=== PATIENT | female | born 1940 | race Hispanic/Latino ===

== ENCOUNTER 2017-03-01 04:27 | Emergency (ER) | payer MEDICARE, BC ==
[2017-03-01 04:27] VITALS: BMI 24.7
[2017-03-01 04:31] VITALS: RESP 18; TEMP 98.2
--- NOTE | 2017-03-01 04:46 | ED PDOC ---
Arrival/HPI - General Time Seen by Provider: 03/01/17 04:28 Historian: Patient - History of Present Illness Narrative History of Present Illness (Text): 03/01/17 04:37 Britany Delarosa is a 76 year old female, whose past medical history includes hypertension, who presents to the Emergency department complaining of generalized weakness. Patient states she has been feeling unwell and weak for the past week with associated cough, subjective fever, and chills. Patient states she was seen by her PMD for similar complaints, diagnosed with pneumonia , and placed on antibiotics. Patient had a Chest X-ray performed on 02/24/2017, which showed interstitial infiltrate in right lower lobe. Patient states she has been taking medication as prescribed but denies any significant relief. Patient also reports some abdominal discomfort. Patient denies any shortness of breath, nausea, vomiting, diarrhea, appetite changes urinary symptoms, back pain , neck pain, headache, dizziness, or any other complaints. PMD: Dr. Marie Time/Duration: 1 week Symptom Onset: Gradual Symptom Course: Unchanged Activities at Onset: Rest, Light Context: Home Past Medical History - Provider Review Nursing Documentation Reviewed: Yes - Cardiac Hx Cardiac Disorders: Yes Hx Hypertension: Yes - Pulmonary Hx Respiratory Disorders: No - Neurological Hx Neurological Disorder: No - HEENT Hx HEENT Disorder: No - Renal Hx Renal Disorder: No - Endocrine/Metabolic Hx Endocrine Disorders: No - Hematological/Oncological Hx Blood Disorders: No - Integumentary Hx Dermatological Disorder: No - Musculoskeletal/Rheumatological Hx Musculoskeletal Disorders: Yes Hx Arthritis: Yes - Gastrointestinal Hx Gastrointestinal Disorders: No - Genitourinary/Gynecological Hx Genitourinary Disorders: No - Psychiatric Hx Psychophysiologic Disorder: Yes Hx Anxiety: Yes Hx Depression: Yes Hx Substance Use: No - Surgical History Hx Hysterectomy: Yes Family/Social History - Physician Review Nursing Documentation Reviewed: Yes Family/Social History: Unknown Family HX Smoking Status: Never Smoked Hx Alcohol Use: No Hx Substance Use: No Allergies/Home Meds Allergies/Adverse Reactions: Allergies No Known Allergies Allergy (Verified 03/01/17 04:47) Home Medications: Home Meds Medication Instructions Recorded Confirmed Alprazolam [Xanax] 0.25 mg PO DAILY 01/08/15 03/01/17 Aspirin [Ecotrin] 81 mg PO DAILY 01/08/15 03/01/17 Bisoprolol Fumarate/Hctz 1 tab PO DAILY 01/08/15 03/01/17 [Bisoprolol/Hctz 5 mg-6.25 mg] Meloxicam [Meloxicam] 7.5 mg PO DAILY 01/08/15 03/01/17 Memantine [Namenda] 5 mg PO DAILY 01/08/15 03/01/17 Sertraline Hydrochloride 50 mg PO DAILY 01/08/15 03/01/17 [Sertraline] Tiotropium [Spiriva] 18 mcg INH DAILY 01/08/15 03/01/17 Review of Systems - Physician Review All systems were reviewed & negative as marked: Yes - Review of Systems Constitutional: Fevers, Other (+chills, +generalized weakness) Eyes: Normal ENT: Normal Respiratory: Cough. absent: SOB Cardiovascular: Normal. absent: Chest Pain Gastrointestinal: absent: Diarrhea, Vomiting Genitourinary Female: Normal. absent: Dysuria, Frequency, Hematuria, Urine Output Changes Musculoskeletal: Normal. absent: Back Pain, Neck Pain Skin: Normal. absent: Rash Neurological: Normal. absent: Headache, Dizziness Endocrine: Normal Hemo/Lymphatic: Normal Psychiatric: Normal Physical Exam Vital Signs Reviewed: Yes Vital Signs Temp Pulse Resp BP Pulse Ox 03/01/17 04:30 98.2 F 78 18 157/68 H 95 Temperature: Afebrile Blood Pressure: Hypertensive Pulse: Regular Respiratory Rate: Normal Appearance: Positive for: Well-Appearing, Non-Toxic, Comfortable Pain Distress: None Mental Status: Positive for: Alert and Oriented X 3 - Systems Exam Head: Present: Atraumatic, Normocephalic Pupils: Present: PERRL Extroacular Muscles: Present: EOMI Conjunctiva: Present: Normal Mouth: Present: Moist Mucous Membranes Neck: Present: Normal Range of Motion Respiratory/Chest: Present: Clear to Auscultation, Good Air Exchange. No: Respiratory Distress, Accessory Muscle Use Cardiovascular: Present: Regular Rate and Rhythm, Normal S1, S2. No: Murmurs Abdomen: Present: Normal Bowel Sounds. No: Tenderness, Distention, Peritoneal Signs Back: Present: Normal Inspection Upper Extremity: Present: Normal Inspection. No: Cyanosis, Edema Lower Extremity: Present: Normal Inspection. No: Edema Neurological: Present: GCS=15, CN II-XII Intact, Speech Normal Skin: Present: Warm, Dry, Normal Color. No: Rashes Psychiatric: Present: Alert, Oriented x 3, Normal Insight, Normal Concentration Medical Decision Making ED Course and Treatment: 03/01/17 04:37 Impression: 76 year old female complaining of generalized weakness, subjective fever, chills , and cough Differential Diagnosis included but are not limited to: Plan: -- EKG -- Chest X-ray -- Labs, troponin -- Reassess and disposition Prior Visits: Notes and results from previous visits were reviewed. On 02/24/2017, pt had Chest X-ray performed, showed interstitial infiltrate in right lower lobe. Progress Notes: 03/01/17 05:07 reviewed EKG, NSR at [address]pm[address] Non-specific ST/T wave changes. Re-evaluation Time: 06:20 Reassessment Condition: Re-examined, Improved - Lab Interpretations Lab Results: 03/01/17 05:10 03/01/17 05:10 Lab Results 03/01/17 05:10: Sodium 139, Potassium 3.6, Chloride 99, Carbon Dioxide 30, Anion Gap 14, BUN 17, Creatinine 0.9, Est GFR ( Amer) > 60, Est GFR (Non- Af Amer) > 60, Random Glucose 99, Calcium 9.3, Total Bilirubin 0.6, AST 28, ALT 33, Alkaline Phosphatase 102, Troponin I < 0.01, Total Protein 7.5, Albumin 3.9 , Globulin 3.6, Albumin/Globulin Ratio 1.1 03/01/17 05:10: WBC 6.6 D, RBC 3.83, Hgb 11.7 L, Hct 35.5 L, MCV 92.7, MCH 30.5 , MCHC 33.0, RDW 12.6, Plt Count 214, MPV 10.1, Gran % 72.7 H, Lymph % (Auto) 16.9 L, [place] % (Auto) 8.4 H, Eos % (Auto) 1.8, Baso % (Auto) 0.2, Gran # 4.77, Lymph # 1.1 L, [place] # 0.6, Eos # 0.1, Baso # 0.01 - RAD Interpretation Radiology Orders: 03/01/17 04:55 CHEST TWO VIEWS (PA/LAT) [RAD] Stat - EKG Interpretation Interpreted by ED Physician: Yes Type: 12 lead EKG - Scribe Statement The provider has reviewed the documentation as recorded by the Gisela Mays Provider Scribe Attestation: All medical record entries made by the Jermanibkristina were at my direction and personally dictated by me. I have reviewed the chart and agree that the record accurately reflects my personal performance of the history, physical exam, medical decision making, and the department course for this patient. I have also personally directed, reviewed, and agree with the discharge instructions and disposition. Disposition/Present on Arrival - Present on Arrival Any Indicators Present on Arrival: No History of DVT/PE: No History of Uncontrolled Diabetes: No Urinary Catheter: No History Surgical Site Infection Following: None - Disposition Have Diagnosis and Disposition been Completed?: Yes Diagnosis: Pneumonia Disposition: HOME/ ROUTINE Disposition Time: 06:21 Condition: GOOD Discharge Instructions (ExitCare): Pneumonia (ED)
[2017-03-01 05:57] LABS: BASO # 0.01 K/mm3 (0.0-2.0); BASO % 0.2 % (0.0-3.0); EOS # 0.1 (0.0-0.7); EOS % 1.8 % (1.5-5.0); GRAN # 4.77 (1.4-6.5); GRAN % 72.7 % (50.0-68.0); HEMATOCRIT 35.5 % (36.0-48.0); LYMPH # 1.1 (1.2-3.4); LYMPH % 16.9 % (22.0-35.0); MEAN CELL VOLUME 92.7 fl (80.0-105.0); MEAN CORPUSCULAR HEMOGLOBIN 30.5 pg (25.0-35.0); MEAN PLATELET VOLUME 10.1 fl (7.0-11.0); MONO # 0.6 (0.1-0.6); MONO % 8.4 % (1.0-6.0); RED CELL DISTRIBUTION WIDTH 12.6 % (11.5-14.5); WHITE BLOOD COUNT 6.6 10^3/ul (4.5-11.0)
[2017-03-01 06:01] LABS: ALB/GLOB RATIO 1.1 (1.1-1.8); ALKALINE PHOSPHATASE 102 U/L (38-133); ALT/SGPT 33 U/L (7-56); AST/SGOT 28 U/L (15-39); BILIRUBIN,TOTAL 0.6 mg/dL (0.2-1.3); BLOOD UREA NITROGEN 17 mg/dL (7-21); CALCIUM 9.3 mg/dL (8.4-10.5); CARBON DIOXIDE 30 mmol/L (21-33); CHLORIDE 99 mmol/L (98-107); GFR AFRICAN-AMERICAN > 60; GLUCOSE,RANDOM 99 mg/dL (70-110); POTASSIUM 3.6 mmol/L (3.6-5.0); SODIUM 139 mmol/L (132-148); TOTAL PROTEIN 7.5 g/dL (5.8-8.3)
[2017-03-01 06:16] LABS: TROPONIN I < 0.01 ng/mL
[2017-03-01 06:49] VITALS: BP 150/70; PULSE 80; O2SAT 98
--- NOTE | 2017-03-01 10:52 | CARD ---
APPROVED REPORT EKG Measurement Heart [id number] <Conclusion> Normal sinus rhythm Septal infarct, age undetermined Abnormal ECG
--- NOTE | 2017-03-01 11:31 | RAD ---
HISTORY: fall COMPARISON: 02/24/2017 TECHNIQUE: Chest PA and lateral FINDINGS: LUNGS: No acute infiltrate. Heterogeneous opacity at right base may reflect coarse interstitial changes or junior pulmonary nodules as demonstrated on chest CT examination of 12/10/2016. PLEURA: No significant pleural effusion identified. No pneumothorax apparent. CARDIOVASCULAR: Normal. OSSEOUS STRUCTURES: No significant abnormalities. VISUALIZED UPPER ABDOMEN: Normal. OTHER FINDINGS: None. IMPRESSION: No acute abnormality. Heterogeneous opacity at right base unchanged from prior examination. No acute infiltrate. No evidence of rib fracture.
== END 2017-03-01 06:31 | disposition home or self-care (01) ==
LOC: ED 04:27
DX: J18.9 Pneumonia, unspecified organism (principal); I10 Essential (primary) hypertension

== ENCOUNTER 2017-08-21 00:16 | Observation (INO) | payer MEDICARE, BC ==
[2017-08-21 00:16] VITALS: BMI 24.7
[2017-08-21 01:14] VITALS: TEMP 97.6
[2017-08-21] MEDS ORDERED: Levalbuterol 1.25 MG/3 ML Inhal Soln UD IH STA ×2 (01:18→02:55)
--- NOTE | 2017-08-21 01:33 | ED PDOC ---
Arrival/HPI - General Chief Complaint: Cough, Cold, Congestion Time Seen by Provider: 08/21/17 01:07 Historian: Patient, Family (Son) - History of Present Illness Narrative History of Present Illness (Text): 08/21/17 01:28 A 77 year old female, whose past medical history includes includes hypertension , presents to the emergency department complaining of 3 day duration cough and shortness of breath. She states that she was seen by her PMD 2 weeks ago for her symptoms and was given a Z-pack with no relief of her symptoms. She also notes that her sleeping medication was changed, and she has been having difficulty sleeping. The patient denies fevers, headache, dizziness, abdominal pain, nausea, vomiting, diarrhea, back pain, neck pain, urinary/bowel changes, or any other complaint. PMD: Dr. Marie Time/Duration: Other (3 days ) Symptom Onset: Sudden Symptom Course: Unchanged Activities at Onset: Rest, Light Context: Home Past Medical History - Provider Review Nursing Documentation Reviewed: Yes - Reproductive Menopause: Yes - Cardiac Hx Cardiac Disorders: Yes Hx Hypertension: Yes - Pulmonary Hx Respiratory Disorders: No - Neurological Hx Neurological Disorder: No - HEENT Hx HEENT Disorder: No - Renal Hx Renal Disorder: No - Endocrine/Metabolic Hx Endocrine Disorders: No - Hematological/Oncological Hx Blood Disorders: No - Integumentary Hx Dermatological Disorder: No - Musculoskeletal/Rheumatological Hx Musculoskeletal Disorders: Yes Hx Arthritis: Yes - Gastrointestinal Hx Gastrointestinal Disorders: No - Genitourinary/Gynecological Hx Genitourinary Disorders: No - Psychiatric Hx Psychophysiologic Disorder: Yes Hx Anxiety: Yes Hx Depression: Yes Hx Substance Use: No - Surgical History Hx Hysterectomy: Yes - Anesthesia Hx Anesthesia: Yes Family/Social History - Physician Review Nursing Documentation Reviewed: Yes Family/Social History: No Known Family HX Smoking Status: Never Smoked Hx Alcohol Use: No Hx Substance Use: No Allergies/Home Meds Allergies/Adverse Reactions: Allergies No Known Allergies Allergy (Verified 08/21/17 01:20) Home Medications: Home Meds Medication Instructions Recorded Confirmed Alprazolam [Xanax] 0.25 mg PO DAILY 01/08/15 03/01/17 Aspirin [Ecotrin] 81 mg PO DAILY 01/08/15 03/01/17 Bisoprolol Fumarate/Hctz 1 tab PO DAILY 01/08/15 03/01/17 [Bisoprolol/Hctz 5 mg-6.25 mg] Meloxicam [Meloxicam] 7.5 mg PO DAILY 01/08/15 03/01/17 Memantine [Namenda] 5 mg PO DAILY 01/08/15 03/01/17 Sertraline Hydrochloride 50 mg PO DAILY 01/08/15 03/01/17 [Sertraline] Tiotropium [Spiriva] 18 mcg INH DAILY 01/08/15 03/01/17 Review of Systems - Physician Review All systems were reviewed & negative as marked: Yes - Review of Systems Constitutional: absent: Fevers Respiratory: SOB, Cough Gastrointestinal: absent: Abdominal Pain, Stool Changes, Diarrhea, Nausea, Vomiting Musculoskeletal: absent: Back Pain, Neck Pain Neurological: absent: Headache, Dizziness Physical Exam Vital Signs Reviewed: Yes Vital Signs Temp Pulse Resp BP Pulse Ox 08/21/17 03:00 75 18 172/89 H 98 08/21/17 01:40 20 98 08/21/17 01:13 97.6 F 73 18 155/93 H 97 Temperature: Afebrile Blood Pressure: Hypertensive Pulse: Regular Respiratory Rate: Normal Appearance: Positive for: Well-Appearing, Non-Toxic, Comfortable Pain Distress: None Mental Status: Positive for: Alert and Oriented X 3 - Systems Exam Head: Present: Atraumatic, Normocephalic Pupils: Present: PERRL Extroacular Muscles: Present: EOMI Conjunctiva: Present: Normal Mouth: Present: Moist Mucous Membranes Neck: Present: Normal Range of Motion Respiratory/Chest: Present: Clear to Auscultation, Good Air Exchange. No: Respiratory Distress, Accessory Muscle Use Cardiovascular: Present: Regular Rate and Rhythm, Normal S1, S2. No: Murmurs Abdomen: Present: Normal Bowel Sounds. No: Tenderness, Distention, Peritoneal Signs Back: Present: Normal Inspection Upper Extremity: Present: Normal Inspection. No: Cyanosis, Edema Lower Extremity: Present: Normal Inspection. No: Edema Neurological: Present: GCS=15, CN II-XII Intact, Speech Normal Skin: Present: Warm, Dry, Normal Color. No: Rashes Psychiatric: Present: Alert, Oriented x 3, Normal Insight, Normal Concentration Medical Decision Making ED Course and Treatment: 08/21/17 01:35 Impression: A 77 year old female present to the emergency department complaining of 3 day duration cough and shortness of breath. Plan: -- Chest X-ray -- Labs -- Urine Culture -- Blood Culture -- Urinalysis -- Reassess and disposition Progress Notes: 08/21/17 02:50: Chest X-ray: Read and interpreted by me shows right lower lobe infiltrate. 08/21/17 02:57: Discussed case in detail with Dr. Marie. States that as of August 13, all patient are admitted to hospitalist. 08/21/17 03:03: Discussed case with Dr. Delarosa and behavioral medical director. Will admit patient to [facility] for pneumonia. - Lab Interpretations Lab Results: 08/21/17 01:45 08/21/17 01:45 Lab Results 08/21/17 02:45: Urine Color Yellow, Urine Appearance Clear, Urine pH 6.5, Ur Specific [place] 1.015, Urine Protein Negative, Urine Glucose (UA) Negative, Urine Ketones Negative, Urine Blood Negative, Urine Nitrate Negative, Urine Bilirubin Negative, Urine Urobilinogen 0.2, Ur Leukocyte Esterase Negative 08/21/17 01:45: WBC 5.3, RBC 3.98, Hgb 12.1, Hct 37.2, MCV 93.5, MCH 30.4, MCHC 32.5, RDW 12.5, Plt Count 183, MPV 10.5, Gran % 64.5, Lymph % (Auto) 24.3, [place] % (Auto) 8.7 H, Eos % (Auto) 2.3, Baso % (Auto) 0.2, Gran # 3.43, Lymph # (Auto ) 1.3, [place] # (Auto) 0.5, Eos # (Auto) 0.1, Baso # (Auto) 0.01 08/21/17 01:45: Sodium 142, Chloride 105, Potassium 4.3, Carbon Dioxide 27, Anion Gap 14, BUN 29 H, Creatinine 0.9, Est GFR ( Amer) > 60, Est GFR ( Non-Af Amer) > 60, Random Glucose 101, Calcium 8.9, Total Bilirubin 0.5, AST 25 , ALT 22, Alkaline Phosphatase 96, Total Protein 7.2, Albumin 3.8, Globulin 3.4 , Albumin/Globulin Ratio 1.1 08/21/17 01:45: pO2 46, VBG pH 7.38, VBG pCO2 51.0, VBG HCO3 30.2 H, VBG Total CO2 31.8 H, VBG O2 Sat (Calc) 87.7 H, VBG Base Excess 3.9 H, VBG Potassium 4.3, Sodium 141.0, Chloride 107.0, Glucose 100, Lactate 0.7, FiO2 21.0, Venous Blood Potassium 4.3 08/21/17 01:40: Influenza Typ A,B (EIA) Negative for flu a/b I have reviewed the lab results: Yes - RAD Interpretation Radiology Orders: 08/21/17 01:14 CXR (PA/LAT) [CHEST TWO VIEWS (PA/LAT)] [RAD] Stat - Medication Orders Current Medication Orders: Alprazolam (Xanax) 0.25 mg PO DAILY [place] PRN Reason: Protocol Stop: 08/28/17 10:01 Aspirin (Ecotrin) 81 mg PO DAILY [place] Sodium Chloride (Sodium Chloride 0.9%) 1,000 mls @ 999 mls/hr IV .Q1H1M STA Stop: 08/21/17 03:55 Last Admin: 08/21/17 03:08 Dose: 999 mls/hr eMAR Start Stop Document 08/21/17 03:08 YP (Rec: 08/21/17 03:08 YP [id number] Intravenous Solution Start Date 08/21/17 Start Time 03:08 End Date 08/21/17 End time 04:08 Total Infusion Time 60 Azithromycin (Zithromax 500mg In Ns) 500 mg in 250 mls @ 167 mls/hr IVPB STAT STA PRN Reason: Protocol Stop: 08/21/17 04:24 Azithromycin (Zithromax 500mg In Ns) 500 mg in 250 mls @ 167 mls/hr IVPB DAILY [place] PRN Reason: Protocol Ceftriaxone Sodium (Rocephin 1 Gram Ivpb) 1 gm in 100 mls @ 100 mls/hr IVPB DAILY [place] PRN Reason: Protocol Meloxicam (Mobic) 7.5 mg PO DAILY [place] Memantine (Namenda) 5 mg PO DAILY [facility] Non-Formulary Medication (Bisoprolol Fumarate/Hctz [Bisoprolol-Hctz 5-6.25 Mg Tab]) 1 tab PO DAILY [place] Sertraline HCl (Zoloft) 50 mg PO DAILY [place] Discontinued Medications Ceftriaxone Sodium (Rocephin 1 Gram Ivpb) 1 gm in 100 mls @ 200 mls/hr IVPB STAT STA PRN Reason: Protocol Stop: 08/21/17 03:24 Last Admin: 08/21/17 03:28 Dose: 200 mls/hr eMAR Start Stop Document 08/21/17 03:28 YP (Rec: 08/21/17 03:28 YP [id number] Intravenous Solution Start Date 08/21/17 Start Time 03:28 End Date 08/21/17 End time 03:58 Total Infusion Time 30 Levalbuterol HCl (Xopenex) 1.25 mg IH STAT STA Stop: 08/21/17 01:19 Last Admin: 08/21/17 01:35 Dose: 1.25 mg Levalbuterol HCl (Xopenex) 1.25 mg IH STAT STA Stop: 08/21/17 02:56 Last Admin: 08/21/17 03:28 Dose: 1.25 mg - PA / [employer] WORKER / Resident Statement MD/DO has reviewed & agrees with the documentation as recorded. - Scribe Statement The provider has reviewed the documentation as recorded by the Jermanibkristina Plascencia Provider Scribe Attestation: All medical record entries made by the Scribe were at my direction and personally dictated by me. I have reviewed the chart and agree that the record accurately reflects my personal performance of the history, physical exam, medical decision making, and the department course for this patient. I have also personally directed, reviewed, and agree with the discharge instructions and disposition. Disposition/Present on Arrival - Present on Arrival Any Indicators Present on Arrival: No History of DVT/PE: No History of Uncontrolled Diabetes: No Urinary Catheter: No History of Decub. Ulcer: No History Surgical Site Infection Following: None - Disposition Have Diagnosis and Disposition been Completed?: Yes Diagnosis: Pneumonia Disposition: HOME/ ROUTINE Disposition Time: 03:36 Patient Plan: Admission Condition: IMPROVED
[2017-08-21 02:09] LABS: BASO # 0.01 K/mm3 (0.0-2.0); BASO % 0.2 % (0.0-3.0); EOS # 0.1 (0.0-0.7); EOS % 2.3 % (1.5-5.0); GRAN # 3.43 (1.4-6.5); GRAN % 64.5 % (50.0-68.0); HEMOGLOBIN 12.1 g/dL (12.0-16.0); LYMPH # 1.3 (1.2-3.4); LYMPH % 24.3 % (22.0-35.0); MEAN CELL VOLUME 93.5 fl (80.0-105.0); MEAN CORPUSCULAR HEMOGLOBIN 30.4 pg (25.0-35.0); MEAN CORPUSCULAR HGB CONC 32.5 g/dl (31.0-37.0); MEAN PLATELET VOLUME 10.5 fl (7.0-11.0); MONO # 0.5 (0.1-0.6); MONO % 8.7 % (1.0-6.0); RBC 3.98 10^6/uL (3.5-6.1); RED CELL DISTRIBUTION WIDTH 12.5 % (11.5-14.5); WHITE BLOOD COUNT 5.3 10^3/ul (4.5-11.0)
[2017-08-21 02:20] LABS: ALB/GLOB RATIO 1.1 (1.1-1.8); ALBUMIN 3.8 g/dL (3.0-4.8); ALT/SGPT 22 U/L (7-56); AST/SGOT 25 U/L (14-36); BLOOD UREA NITROGEN 29 mg/dL (7-21); CALCIUM 8.9 mg/dL (8.4-10.5); GFR AFRICAN-AMERICAN > 60; GFR NON-AFRICAN AMERICAN > 60
[2017-08-21 02:23] LABS: VENOUS BLOOD GAS BASE EXCESS 3.9 mmol/L (0.0-2.0); VENOUS BLOOD GAS PO2 46 mm/Hg (30-55); VENOUS BLOOD PH 7.38 (7.32-7.43)
[2017-08-21] MEDS ORDERED: Sodium Chloride 0.9% 1,000 ML IV STA (02:55)
[2017-08-21] MEDS ORDERED: Azithromycin 500MG/NS 250ml 500 MG/250 ML BAG IVPB STA (02:55)
[2017-08-21] MEDS ORDERED: cefTRIAXone 1 gm 1 GM/100 ML BAG IVPB STA (02:55)
[2017-08-21 03:17] LABS: PH,URINE 6.5 (4.7-8.0); URINE BILIRUBIN NEGATIVE (NEGATIVE); URINE BLOOD NEGATIVE (NEGATIVE); URINE GLUCOSE (UA) NEGATIVE (NEGATIVE); URINE LEUKOCYTE ESTERASE NEGATIVE Leu/uL (NEGATIVE); URINE NITRATE NEGATIVE (NEGATIVE); URINE PROTEIN NEGATIVE mg/dL (<30 mg/dL); URINE UROBILINOGEN 0.2 E.U./dL (<1 E.U./dL)
[2017-08-21 03:28] LABS: URINE APPEARANCE CLEAR (CLEAR); URINE COLOR YELLOW (YELLOW)
--- NOTE | 2017-08-21 03:28 | CP.PCM.HP ---
<Karlo Estrada - Last Filed: 08/21/17 04:36> History of Present Illness - History of Present Illness History of Present Illness: 77 year old female with past medical history of hypertension presents with 3 days of cough and shortness of breath. She states that she was seen by her PMD 2 weeks ago for cough , chills and weakness. She was given a Z-pack , but her symptoms have not resolved. She states the cough is productive, and she coughs up yellow sputum. She does state she has some pain when she is coughing and sometimes she feels it is difficult to breath. In addition, she has some weakness and a sore throat. The patient denies chest pain, fevers, dizziness, abdominal pain, nausea, vomiting, diarrhea, back pain, neck pain, urinary/bowel changes, or any other complaints at this time. PMD: [place] PMH: HTN, mild memory loss PSH: hysterectomy Allergies:NKDA Social:denies tobacco use, alcohol use, or illicit drug use. does state she gets second hand smoke from her . Meds: namenda, Spiriva, Seroquel, Bisoprolol-HCTZ, meloxicam , aspirin 81mg Family Hx: denies Present on Admission - Present on Admission Any Indicators Present on Admission: No Review of Systems - Constitutional Constitutional: Chills, Headache, Weakness. absent: Fever - EENT Eyes: absent: Change in Vision Nose/Mouth/Throat: Sore Throat. absent: Nasal Congestion, Nasal Discharge - Cardiovascular Cardiovascular: Dyspnea. absent: Chest Pain - Respiratory Respiratory: Cough, Dyspnea, Excessive Mucous Production - Gastrointestinal Gastrointestinal: absent: Abdominal Pain, Diarrhea, Nausea, Vomiting Past Patient History - Past Social History Smoking Status: Never Smoked - CARDIAC Hx Cardiac Disorders: Yes Hx Hypertension: Yes - PULMONARY Hx Respiratory Disorders: No - NEUROLOGICAL Hx Neurological Disorder: No - HEENT Hx HEENT Problems: No - RENAL Hx Chronic Kidney Disease: No - ENDOCRINE/METABOLIC Hx Endocrine Disorders: No - HEMATOLOGICAL/ONCOLOGICAL Hx Blood Disorders: No - INTEGUMENTARY Hx Dermatological Problems: No - MUSCULOSKELETAL/RHEUMATOLOGICAL Hx Musculoskeletal Disorders: Yes Hx Arthritis: Yes - GASTROINTESTINAL Hx Gastrointestinal Disorders: No - GENITOURINARY/GYNECOLOGICAL Hx Genitourinary Disorders: No - PSYCHIATRIC Hx Psychophysiologic Disorder: Yes Hx Anxiety: Yes Hx Depression: Yes Hx Substance Use: No - SURGICAL HISTORY Hx Hysterectomy: Yes - ANESTHESIA Hx Anesthesia: Yes Meds Home Medications: Home Medication List Medication Instructions Recorded Confirmed Type Benzonatate [Tessalon Perle] 100 mg PO TID #20 capsule 08/21/17 Rx Budesonide/Formoterol Fumarate 1 aer IH BID #1 aer 08/21/17 Rx [Symbicort] Levofloxacin [Levaquin] 500 mg PO DAILY #4 tablet 08/21/17 Rx Allergies/Adverse Reactions: Allergies Allergy/AdvReac Type Severity Reaction Status Date / Time No Known Allergies Allergy Verified 08/21/17 01:20 Physical Exam - Constitutional Appears: Non-toxic, No Acute Distress - Head Exam Head Exam: ATRAUMATIC, NORMAL INSPECTION, NORMOCEPHALIC - Eye Exam Eye Exam: EOMI, Normal appearance, PERRL - ENT Exam ENT Exam: Mucous Membranes Moist - Neck Exam Neck exam: Negative for: Lymphadenopathy, Tenderness - Respiratory Exam Respiratory Exam: Clear to Auscultation Bilateral, NORMAL BREATHING PATTERN - Cardiovascular Exam Cardiovascular Exam: REGULAR RHYTHM, +S1, +S2 - GI/Abdominal Exam GI & Abdominal Exam: Soft. absent: Tenderness - Extremities Exam Extremities exam: Positive for: pedal pulses present. Negative for: pedal edema - Neurological Exam Neurological exam: Alert, Oriented x3 Results - Vital Signs Recent Vital Signs: Last Vital Signs Temp 97.6 F 08/21/17 01:13 Pulse 75 08/21/17 03:00 Resp 18 08/21/17 03:00 BP 172/89 H 08/21/17 03:00 Pulse Ox 98 08/21/17 03:00 - Labs Result Diagrams: 08/21/17 04:00 08/21/17 01:45 Assessment & Plan - Assessment and Plan (Free Text) Assessment: 77 year old female with past medical history of hypertension presents with 3 days of cough and shortness of breath. She is being treated for CAP. Plan: 1. Pneumonia-CAP -EKG pending official read -Chest xray pending official read, showing right lower lobe infiltrate -ceftriaxone and azithromycin given in ED -continue ceftriaxone and azithromycin -cultures pending -legionella antigen pending -oxygen 2L PRN -ID consulted, Go, follow recs -blood and urine cultures pending -robitussin -xopenex PRN 2. HTN -continue home meds 3. Memory loss/sleeping issues -continue home namenda, zoloft GI/DVT -protonix -SCD <Belkis Delarosa N - Last Filed: 08/23/17 01:20> Results - Vital Signs Recent Vital Signs: Last Vital Signs Temp 97.6 F 08/21/17 01:13 Pulse 88 08/21/17 04:10 Resp 16 08/21/17 04:10 BP 145/83 08/21/17 04:10 Pulse Ox 99 08/21/17 04:10 - Labs Result Diagrams: 08/21/17 04:00 08/21/17 04:00 Labs: Laboratory Results - last 24 hr 08/21/17 04:00 WBC 6.0 RBC 3.81 Hgb 11.6 L Hct 35.9 L MCV 94.2 MCH 30.4 MCHC 32.3 RDW 12.6 Plt Count 170 MPV 10.6 Gran % 55.9 Lymph % (Auto) 34.4 [place] % (Auto) 7.7 H Eos % (Auto) 1.8 Baso % (Auto) 0.2 Gran # 3.33 Lymph # (Auto) 2.1 [place] # (Auto) 0.5 Eos # (Auto) 0.1 Baso # (Auto) 0.01
[2017-08-21] MEDS ORDERED: guaiFENesin 100 mg/5 ml Syrup UD PO PRN (03:39)
[2017-08-21 04:13] LABS: BASO # 0.01 K/mm3 (0.0-2.0); BASO % 0.2 % (0.0-3.0); EOS # 0.1 (0.0-0.7); EOS % 1.8 % (1.5-5.0); GRAN # 3.33 (1.4-6.5); GRAN % 55.9 % (50.0-68.0); HEMOGLOBIN 11.6 g/dL (12.0-16.0); LYMPH # 2.1 (1.2-3.4); LYMPH % 34.4 % (22.0-35.0); MEAN CELL VOLUME 94.2 fl (80.0-105.0); MEAN CORPUSCULAR HEMOGLOBIN 30.4 pg (25.0-35.0); MEAN CORPUSCULAR HGB CONC 32.3 g/dl (31.0-37.0); MEAN PLATELET VOLUME 10.6 fl (7.0-11.0); MONO # 0.5 (0.1-0.6); MONO % 7.7 % (1.0-6.0); RBC 3.81 10^6/uL (3.5-6.1); RED CELL DISTRIBUTION WIDTH 12.6 % (11.5-14.5)
[2017-08-21] MEDS ORDERED: Levalbuterol 0.63 MG/3 ML Inhal Soln UD IH PRN (04:13)
[2017-08-21 05:07] LABS: ALB/GLOB RATIO 1.1 (1.1-1.8); ALBUMIN 3.6 g/dL (3.0-4.8); ALT/SGPT 31 U/L (7-56); AST/SGOT 23 U/L (14-36); BLOOD UREA NITROGEN 25 mg/dL (7-21); CALCIUM 8.6 mg/dL (8.4-10.5); GFR AFRICAN-AMERICAN > 60; GFR NON-AFRICAN AMERICAN > 60
[2017-08-21] MEDS ORDERED: Pantoprazole 40 mg EC Tab PO SCH (06:00)
[2017-08-21 08:52] VITALS: BP 127/79; PULSE 81; RESP 20; O2SAT 97
--- NOTE | 2017-08-21 09:36 | RAD ---
HISTORY: cough, cold, congestion COMPARISON: Comparison is made with 03/01/2017 TECHNIQUE: Chest PA and lateral FINDINGS: LUNGS: No active pulmonary disease. PLEURA: No significant pleural effusion identified. No pneumothorax apparent. CARDIOVASCULAR: Normal. OSSEOUS STRUCTURES: No significant abnormalities. VISUALIZED UPPER ABDOMEN: Normal. OTHER FINDINGS: None. IMPRESSION: No active disease.
[2017-08-21] MEDS ORDERED: Meloxicam 7.5 MG TAB PO SCH (10:00)
[2017-08-21] MEDS ORDERED: BISOPROLOL HCTZ PO SCH (10:00)
--- NOTE | 2017-08-21 16:03 | CP.PCM.DIS ---
<Gracie Campuzano - Last Filed: 08/21/17 15:59> Provider - Provider Date of Admission: 08/21/17 03:04 Attending physician: Bessie Ramirez MD Consults: Dr. Munroe Time Spent in preparation of Discharge (in minutes): 35 Diagnosis - Discharge Diagnosis (1) URI (upper respiratory infection) Status: Acute Hospital Course - Lab Results Lab Results: Most Recent Lab Values WBC 6.0 10^3/ul (4.5-11.0) 08/21/17 04:00 RBC 3.81 10^6/uL (3.5-6.1) 08/21/17 04:00 Hgb 11.6 g/dL (12.0-16.0) L 08/21/17 04:00 Hct 35.9 % (36.0-48.0) L 08/21/17 04:00 MCV 94.2 fl (80.0-105.0) 08/21/17 04:00 MCH 30.4 pg (25.0-35.0) 08/21/17 04:00 MCHC 32.3 g/dl (31.0-37.0) 08/21/17 04:00 RDW 12.6 % (11.5-14.5) 08/21/17 04:00 Plt Count 170 10^3/uL (120.0-450.0) 08/21/17 04:00 MPV 10.6 fl (7.0-11.0) 08/21/17 04:00 Gran % 55.9 % (50.0-68.0) 08/21/17 04:00 Lymph % (Auto) 34.4 % (22.0-35.0) 08/21/17 04:00 Canadian % (Auto) 7.7 % (1.0-6.0) H 08/21/17 04:00 Eos % (Auto) 1.8 % (1.5-5.0) 08/21/17 04:00 Baso % (Auto) 0.2 % (0.0-3.0) 08/21/17 04:00 Gran # 3.33 (1.4-6.5) 08/21/17 04:00 Lymph # (Auto) 2.1 (1.2-3.4) 08/21/17 04:00 Canadian # (Auto) 0.5 (0.1-0.6) 08/21/17 04:00 Eos # (Auto) 0.1 (0.0-0.7) 08/21/17 04:00 Baso # (Auto) 0.01 K/mm3 (0.0-2.0) 08/21/17 04:00 pO2 46 mm/Hg (30-55) 08/21/17 01:45 VBG pH 7.38 (7.32-7.43) 08/21/17 01:45 VBG pCO2 51.0 (40-60) 08/21/17 01:45 VBG HCO3 30.2 mmol/l (21-28) H 08/21/17 01:45 VBG Total CO2 31.8 mmol.L (22-28) H 08/21/17 01:45 VBG O2 Sat (Calc) 87.7 % (40-65) H 08/21/17 01:45 VBG Base Excess 3.9 mmol/L (0.0-2.0) H 08/21/17 01:45 VBG Potassium 4.3 mmol/L (3.6-5.2) 08/21/17 01:45 Sodium 141.0 mmol/L (132-148) 08/21/17 01:45 Chloride 107.0 mmol/L (98-107) 08/21/17 01:45 Glucose 100 mg/dl (65-105) 08/21/17 01:45 Lactate 0.7 mmol/L (0.7-2.1) 08/21/17 01:45 FiO2 21.0 % 08/21/17 01:45 Sodium 144 mmol/L (132-148) 08/21/17 04:00 Potassium 4.0 mmol/L (3.6-5.0) 08/21/17 04:00 Chloride 107 mmol/L (98-107) 08/21/17 04:00 Carbon Dioxide 27 mmol/L (21-33) 08/21/17 04:00 Anion Gap 14 (10-20) 08/21/17 04:00 BUN 25 mg/dL (7-21) H 08/21/17 04:00 Creatinine 0.8 mg/dl (0.7-1.2) 08/21/17 04:00 Est GFR ( Amer) > 60 08/21/17 04:00 Est GFR (Non-Af Amer) > 60 08/21/17 04:00 Random Glucose 101 mg/dL (70-110) 08/21/17 04:00 Calcium 8.6 mg/dL (8.4-10.5) 08/21/17 04:00 Total Bilirubin 0.4 mg/dL (0.2-1.3) 08/21/17 04:00 AST 23 U/L (14-36) 08/21/17 04:00 ALT 31 U/L (7-56) 08/21/17 04:00 Alkaline Phosphatase 95 U/L (38-126) 08/21/17 04:00 Total Protein 6.8 g/dL (5.8-8.3) 08/21/17 04:00 Albumin 3.6 g/dL (3.0-4.8) 08/21/17 04:00 Globulin 3.2 gm/dL 08/21/17 04:00 Albumin/Globulin Ratio 1.1 (1.1-1.8) 08/21/17 04:00 Procalcitonin < 0.05 NG/ML (0.19-0.49) L 08/21/17 07:00 Venous Blood Potassium 4.3 mmol/L (3.6-5.2) 08/21/17 01:45 Urine Color Yellow (YELLOW) 08/21/17 02:45 Urine Appearance Clear (CLEAR) 08/21/17 02:45 Urine pH 6.5 (4.7-8.0) 08/21/17 02:45 Ur Specific [place] 1.015 (1.005-1.035) 08/21/17 02:45 Urine Protein Negative mg/dL (<30 mg/dL) 08/21/17 02:45 Urine Glucose (UA) Negative mg/dL (NEGATIVE) 08/21/17 02:45 Urine Ketones Negative mg/dL (NEGATIVE) 08/21/17 02:45 Urine Blood Negative (NEGATIVE) 08/21/17 02:45 Urine Nitrate Negative (NEGATIVE) 08/21/17 02:45 Urine Bilirubin Negative (NEGATIVE) 08/21/17 02:45 Urine Urobilinogen 0.2 E.U./dL (<1 E.U./dL) 08/21/17 02:45 Ur Leukocyte Esterase Negative Jonathan/uL (NEGATIVE) 08/21/17 02:45 Influenza Typ A,B (EIA) Negative for flu a/b (NEGATIVE) 08/21/17 01:40 Ur L.pneumophila Ag Negative (NEGATIVE) 08/21/17 04:20 - Hospital Course Hospital Course: Upon admission: 77 year old female with past medical history of hypertension presents with 3 days of cough and shortness of breath. She states that she was seen by her PMD 2 weeks ago for cough , chills and weakness. She was given a Z-pack , but her symptoms have not resolved. She states the cough is productive, and she coughs up yellow sputum. She does state she has some pain when she is coughing and sometimes she feels it is difficult to breath. In addition, she has some weakness and a sore throat. The patient denies chest pain, fevers, dizziness, abdominal pain, nausea, vomiting, diarrhea, back pain, neck pain, urinary/bowel changes, or any other complaints at this time. Hospital course: Patient was admitted for possible pneumonia. WBC count was not elevated and patient was afebrile. Procal was <0.05 and CXR was not concerning for pneumonia. Patient was cleared for discharge on oral antibiotics and steroid inhaler per Dr. Ramirez. Discharge Exam - Head Exam Head Exam: ATRAUMATIC, NORMAL INSPECTION, NORMOCEPHALIC - Eye Exam Eye Exam: EOMI, Normal appearance, PERRL - ENT Exam ENT Exam: Mucous Membranes Moist - Respiratory Exam Respiratory Exam: Clear to PA & Lateral, NORMAL BREATHING PATTERN, UNREMARKABLE - Cardiovascular Exam Cardiovascular Exam: RRR, +S1, +S2 - GI/Abdominal Exam GI & Abdominal Exam: Normal Bowel Sounds, Unremarkable - Extremities Exam Extremities exam: normal inspection - Neurological Exam Neurological exam: Alert, Oriented x3 - Psychiatric Exam Psychiatric exam: Normal Affect, Normal Mood - Skin Skin Exam: Dry, Intact, Normal Color, Warm Discharge Plan - Discharge Medications Prescriptions: Benzonatate [Tessalon Perle] 100 mg PO TID #20 capsule Budesonide/Formoterol Fumarate [Symbicort] 1 aer IH BID #1 aer Levofloxacin [Levaquin] 500 mg PO DAILY #4 tablet - Follow Up Plan Condition: IMPROVED Disposition: HOME/ ROUTINE Instructions: Pneumococcal Vaccine for Adults (GEN), Heart Healthy Diet (DC), Influenza Vaccine (GEN), Acute Abdominal Pain (GEN) Additional Instructions: please follow up with your primary care provider within 1 week of discharge. Please fill the provided medications at you pharmacy and take as directed. <Bessie Ramirez - Last Filed: 08/21/17 18:40> Provider - Provider Date of Admission: 08/21/17 03:04 Attending physician: Bessie Ramirez MD Hospital Course - Lab Results Lab Results: Most Recent Lab Values WBC 6.0 10^3/ul (4.5-11.0) 08/21/17 04:00 RBC 3.81 10^6/uL (3.5-6.1) 08/21/17 04:00 Hgb 11.6 g/dL (12.0-16.0) L 08/21/17 04:00 Hct 35.9 % (36.0-48.0) L 08/21/17 04:00 MCV 94.2 fl (80.0-105.0) 08/21/17 04:00 MCH 30.4 pg (25.0-35.0) 08/21/17 04:00 MCHC 32.3 g/dl (31.0-37.0) 08/21/17 04:00 RDW 12.6 % (11.5-14.5) 08/21/17 04:00 Plt Count 170 10^3/uL (120.0-450.0) 08/21/17 04:00 MPV 10.6 fl (7.0-11.0) 08/21/17 04:00 Gran % 55.9 % (50.0-68.0) 08/21/17 04:00 Lymph % (Auto) 34.4 % (22.0-35.0) 08/21/17 04:00 Canadian % (Auto) 7.7 % (1.0-6.0) H 08/21/17 04:00 Eos % (Auto) 1.8 % (1.5-5.0) 08/21/17 04:00 Baso % (Auto) 0.2 % (0.0-3.0) 08/21/17 04:00 Gran # 3.33 (1.4-6.5) 08/21/17 04:00 Lymph # (Auto) 2.1 (1.2-3.4) 08/21/17 04:00 Canadian # (Auto) 0.5 (0.1-0.6) 08/21/17 04:00 Eos # (Auto) 0.1 (0.0-0.7) 08/21/17 04:00 Baso # (Auto) 0.01 K/mm3 (0.0-2.0) 08/21/17 04:00 pO2 46 mm/Hg (30-55) 08/21/17 01:45 VBG pH 7.38 (7.32-7.43) 08/21/17 01:45 VBG pCO2 51.0 (40-60) 08/21/17 01:45 VBG HCO3 30.2 mmol/l (21-28) H 08/21/17 01:45 VBG Total CO2 31.8 mmol.L (22-28) H 08/21/17 01:45 VBG O2 Sat (Calc) 87.7 % (40-65) H 08/21/17 01:45 VBG Base Excess 3.9 mmol/L (0.0-2.0) H 08/21/17 01:45 VBG Potassium 4.3 mmol/L (3.6-5.2) 08/21/17 01:45 Sodium 141.0 mmol/L (132-148) 08/21/17 01:45 Chloride 107.0 mmol/L (98-107) 08/21/17 01:45 Glucose 100 mg/dl (65-105) 08/21/17 01:45 Lactate 0.7 mmol/L (0.7-2.1) 08/21/17 01:45 FiO2 21.0 % 08/21/17 01:45 Sodium 144 mmol/L (132-148) 08/21/17 04:00 Potassium 4.0 mmol/L (3.6-5.0) 08/21/17 04:00 Chloride 107 mmol/L (98-107) 08/21/17 04:00 Carbon Dioxide 27 mmol/L (21-33) 08/21/17 04:00 Anion Gap 14 (10-20) 08/21/17 04:00 BUN 25 mg/dL (7-21) H 08/21/17 04:00 Creatinine 0.8 mg/dl (0.7-1.2) 08/21/17 04:00 Est GFR ( Amer) > 60 08/21/17 04:00 Est GFR (Non-Af Amer) > 60 08/21/17 04:00 Random Glucose 101 mg/dL (70-110) 08/21/17 04:00 Calcium 8.6 mg/dL (8.4-10.5) 08/21/17 04:00 Total Bilirubin 0.4 mg/dL (0.2-1.3) 08/21/17 04:00 AST 23 U/L (14-36) 08/21/17 04:00 ALT 31 U/L (7-56) 08/21/17 04:00 Alkaline Phosphatase 95 U/L (38-126) 08/21/17 04:00 Total Protein 6.8 g/dL (5.8-8.3) 08/21/17 04:00 Albumin 3.6 g/dL (3.0-4.8) 08/21/17 04:00 Globulin 3.2 gm/dL 08/21/17 04:00 Albumin/Globulin Ratio 1.1 (1.1-1.8) 08/21/17 04:00 Procalcitonin < 0.05 NG/ML (0.19-0.49) L 08/21/17 07:00 Venous Blood Potassium 4.3 mmol/L (3.6-5.2) 08/21/17 01:45 Urine Color Yellow (YELLOW) 08/21/17 02:45 Urine Appearance Clear (CLEAR) 08/21/17 02:45 Urine pH 6.5 (4.7-8.0) 08/21/17 02:45 Ur Specific [place] 1.015 (1.005-1.035) 08/21/17 02:45 Urine Protein Negative mg/dL (<30 mg/dL) 08/21/17 02:45 Urine Glucose (UA) Negative mg/dL (NEGATIVE) 08/21/17 02:45 Urine Ketones Negative mg/dL (NEGATIVE) 08/21/17 02:45 Urine Blood Negative (NEGATIVE) 08/21/17 02:45 Urine Nitrate Negative (NEGATIVE) 08/21/17 02:45 Urine Bilirubin Negative (NEGATIVE) 08/21/17 02:45 Urine Urobilinogen 0.2 E.U./dL (<1 E.U./dL) 08/21/17 02:45 Ur Leukocyte Esterase Negative Jonathan/uL (NEGATIVE) 08/21/17 02:45 Influenza Typ A,B (EIA) Negative for flu a/b (NEGATIVE) 08/21/17 01:40 Ur L.pneumophila Ag Negative (NEGATIVE) 08/21/17 04:20 Attending/Attestation - Attestation I have personally seen and examined this patient.: Yes I have fully participated in the care of the patient.: Yes I have reviewed all pertinent clinical information, including history, physical exam and plan: Yes Notes (Text): 08/21/17 18:33 Patient was seen and examined with medical editor. 77 yrs old female was admitted with dry cough, H/O of recent upper respiratory tract. Patient is afebrile, lung sound are clear. Chest X ray is negative for Pneumonia.Procalcitonin level is normal. Patient is on room air.Patient is ambulatory. Patient will be discharged home and will follow up with PCP. Management plan was discussed in detail with patient. Education was provided.
--- NOTE | 2017-08-21 19:42 | CP.PCM.CON ---
History of Present Illness - History of Present Illness History of Present Illness: Infectious Disease Consultation: August 21, 2017 77 yo [place] female admitted for shortness of breath and cough for 3 days. She saw her PMD 2 weeks ago and received Azithromycin. No improvement with her symptoms. Her cough is productive of yellow sputum. The patient also states weakness and a sore throat. No other complaints. PMHx: HTN, mild memory loss PSHx: Hysterectomy Allergies: NKDA Social Hx: No tobacco, EtOH, or illicit drug use Medications: ASA, Ambien, Namenda, Meloxicam, Bisoprolol, HCTZ, Alprazolam, Tiotropium, Omeprazole, Symbicort Family Hx: none given ROS: Cough, SOB, weakness, sore throat No fevers, chills, nausea, vomiting, diarrhea, headaches, dizziness, melena, hematuria, hematochezia, depression, anxiety, vision loss, hearing loss. Past Patient History - Past Social History Smoking Status: Never Smoked - CARDIAC Hx Cardiac Disorders: Yes Hx Hypertension: Yes - PULMONARY Hx Respiratory Disorders: No Hx Pneumonia: Yes - NEUROLOGICAL Hx Neurological Disorder: No - HEENT Hx HEENT Problems: No - RENAL Hx Chronic Kidney Disease: No - ENDOCRINE/METABOLIC Hx Endocrine Disorders: No - HEMATOLOGICAL/ONCOLOGICAL Hx Blood Disorders: No - INTEGUMENTARY Hx Dermatological Problems: No - MUSCULOSKELETAL/RHEUMATOLOGICAL Hx Musculoskeletal Disorders: Yes Hx Arthritis: Yes Hx Falls: Yes (bathroom (slipped)) - GASTROINTESTINAL Hx Gastrointestinal Disorders: No - GENITOURINARY/GYNECOLOGICAL Hx Genitourinary Disorders: No - PSYCHIATRIC Hx Psychophysiologic Disorder: Yes Hx Anxiety: Yes Hx Depression: Yes Hx Substance Use: No - SURGICAL HISTORY Hx Hysterectomy: Yes - ANESTHESIA Hx Anesthesia: Yes Meds Home Medications: Home Medication List Medication Instructions Recorded Confirmed Type Benzonatate [Tessalon Perle] 100 mg PO TID #20 capsule 08/21/17 Rx Budesonide/Formoterol Fumarate 1 aer IH BID #1 aer 08/21/17 Rx [Symbicort] Levofloxacin [Levaquin] 500 mg PO DAILY #4 tablet 08/21/17 Rx Allergies/Adverse Reactions: Allergies Allergy/AdvReac Type Severity Reaction Status Date / Time No Known Allergies Allergy Verified 08/21/17 01:20 Physical Exam - Constitutional Appears: Non-toxic, No Acute Distress - Head Exam Head Exam: ATRAUMATIC, NORMOCEPHALIC - Eye Exam Eye Exam: EOMI, PERRL Pupil Exam: NORMAL ACCOMODATION, PERRL - ENT Exam ENT Exam: Mucous Membranes Moist, Normal External Ear Exam, TM's Normal Bilaterally - Neck Exam Neck exam: Negative for: Lymphadenopathy, Thyromegaly - Respiratory Exam Respiratory Exam: Clear to Auscultation Bilateral, NORMAL BREATHING PATTERN. absent: Rales, Rhonchi, Wheezes - Cardiovascular Exam Cardiovascular Exam: REGULAR RHYTHM, RRR, +S1, +S2 - GI/Abdominal Exam GI & Abdominal Exam: Normal Bowel Sounds, Soft. absent: Distended, Tenderness - Extremities Exam Extremities exam: Positive for: full ROM. Negative for: joint swelling, pedal edema - Neurological Exam Neurological exam: Alert, CN II-XII Intact, Oriented x3 - Psychiatric Exam Psychiatric exam: Normal Affect, Normal Mood - Skin Skin Exam: Intact, Normal Color Results - Vital Signs Recent Vital Signs: Last Vital Signs Temp 97.6 F 08/21/17 08:00 Pulse 81 08/21/17 08:00 Resp 20 08/21/17 08:00 BP 127/79 08/21/17 08:00 Pulse Ox 97 08/21/17 08:00 - Labs Result Diagrams: 08/21/17 04:00 08/21/17 04:00 Labs: Laboratory Results - last 24 hr 08/21/17 08/21/17 08/21/17 04:00 04:00 04:20 WBC 6.0 RBC 3.81 Hgb 11.6 L Hct 35.9 L MCV 94.2 MCH 30.4 MCHC 32.3 RDW 12.6 Plt Count 170 MPV 10.6 Gran % 55.9 Lymph % (Auto) 34.4 Mayes % (Auto) 7.7 H Eos % (Auto) 1.8 Baso % (Auto) 0.2 Gran # 3.33 Lymph # (Auto) 2.1 Mayes # (Auto) 0.5 Eos # (Auto) 0.1 Baso # (Auto) 0.01 Sodium 144 Potassium 4.0 Chloride 107 Carbon Dioxide 27 Anion Gap 14 BUN 25 H Creatinine 0.8 Est GFR ( Amer) > 60 Est GFR (Non-Af Amer) > 60 Random Glucose 101 Calcium 8.6 Total Bilirubin 0.4 AST 23 ALT 31 Alkaline Phosphatase 95 Total Protein 6.8 Albumin 3.6 Globulin 3.2 Albumin/Globulin Ratio 1.1 Procalcitonin Ur L.pneumophila Ag Negative 08/21/17 07:00 WBC RBC Hgb Hct MCV MCH MCHC RDW Plt Count MPV Gran % Lymph % (Auto) Mayes % (Auto) Eos % (Auto) Baso % (Auto) Gran # Lymph # (Auto) Mayes # (Auto) Eos # (Auto) Baso # (Auto) Sodium Potassium Chloride Carbon Dioxide Anion Gap BUN Creatinine Est GFR ( Amer) Est GFR (Non-Af Amer) Random Glucose Calcium Total Bilirubin AST ALT Alkaline Phosphatase Total Protein Albumin Globulin Albumin/Globulin Ratio Procalcitonin < 0.05 L Ur L.pneumophila Ag Assessment & Plan - Assessment and Plan (Free Text) Assessment: 77 yo female with signs of CAP of SOB and cough for at least 3 days. Recently received Azithromycin for antibiotic treatment. On Ceftriaxone and Azithromycin now. Sent for Legionella and Influenza screens which were negative. Clinically the patient appears fairly well. Can consider discharging on oral Levaquin for 5-7 days more treatment. Supportive care. Thank you for allowing me to participate in the care of the patient, we will follow with you.
[2017-08-22] MEDS ORDERED: Azithromycin 500MG/NS 250ml 500 MG/250 ML BAG IVPB SCH (10:00)
[2017-08-22] MEDS ORDERED: cefTRIAXone 1 gm 1 GM/100 ML BAG IVPB SCH (10:00)
== END 2017-08-21 17:30 | disposition home or self-care (01) ==
LOC: ED 00:16 → INTOOBSV 03:04 → ERH 03:04 → 5RNO 04:40
PROVIDERS: ADMIT Internal Medicine; ATTEND Internal Medicine
DX: J06.9 Acute upper respiratory infection, unspecified (principal); I10 Essential (primary) hypertension; J02.9 Acute pharyngitis, unspecified; R41.3 Other amnesia; Z90.710 Acquired absence of both cervix and uterus
CPT/HCPCS: 71046; 80053; 81003; 82803; 84145; 85025; 87040; 87086; 87449; 87804; 96365; 96375; 99285; G0378; J0456; J0696; J7040

== ENCOUNTER 2018-02-17 11:11 | Emergency (ER) | payer MEDICARE, BC ==
[2018-02-17 11:12] VITALS: BMI 24.7
[2018-02-17 11:34] VITALS: RESP 18
--- NOTE | 2018-02-17 11:42 | ED PDOC ---
Arrival/HPI - General Chief Complaint: ENT Problem Time Seen by Provider: 02/17/18 11:30 Historian: Patient - History of Present Illness Narrative History of Present Illness (Text): 02/17/18 11:30 This 77 female with pmh hypertension, secondary tobacco exposure, anxiety, presents to this emergency department complaining of productive cough x 10 days. Patient stated cough has becomes dry , and she developed left side Chest Pain x 2 days. Pain is worsen during inspiration, or every time she cough. Patient feels generalized weakness. Patient stated she was seen by her Runner Worker 8 days ago, who prescribed her Medrol Dose pack, and Omnicef 300 mg BID x 10 days. Patient feels night sweats. Denies recent travel, fever, sick contact, dizziness, or abnormal gait. Patient is concern that left sided chest pain could be her heart. Dr. Rosalio Mosley, Runner Worker Dr. Manasa Marie, PMD Time/Duration: Other (days) Context: Home Past Medical History - Provider Review Nursing Documentation Reviewed: Yes - Infectious Disease Hx of Infectious Diseases: None - Cardiac Hx Cardiac Disorders: Yes Hx Hypertension: Yes - Pulmonary Hx Respiratory Disorders: Yes Hx Pneumonia: Yes - Neurological Hx Neurological Disorder: No - HEENT Hx HEENT Disorder: No - Renal Hx Renal Disorder: No - Endocrine/Metabolic Hx Endocrine Disorders: No - Hematological/Oncological Hx Blood Disorders: No - Integumentary Hx Dermatological Disorder: No - Musculoskeletal/Rheumatological Hx Musculoskeletal Disorders: Yes Hx Arthritis: Yes Hx Falls: Yes (bathroom (slipped)) - Gastrointestinal Hx Gastrointestinal Disorders: No - Genitourinary/Gynecological Hx Genitourinary Disorders: No - Psychiatric Hx Psychophysiologic Disorder: Yes Hx Anxiety: Yes Hx Depression: Yes Hx Substance Use: No - Surgical History Hx Hysterectomy: Yes - Anesthesia Hx Anesthesia: Yes Family/Social History - Physician Review Nursing Documentation Reviewed: Yes Family/Social History: Other (noncontributory) Smoking Status: Never Smoked Hx Alcohol Use: No Hx Substance Use: No Allergies/Home Meds Allergies/Adverse Reactions: Allergies No Known Allergies Allergy (Verified 02/17/18 11:25) Home Medications: Home Meds Medication Instructions Recorded Confirmed Alprazolam [Xanax] 0.25 mg PO DAILY 01/08/15 08/21/17 Bisoprolol Fumarate/Hctz 1 tab PO DAILY 01/08/15 08/21/17 [Bisoprolol-Hctz 5-6.25 mg Tab] Meloxicam 7.5 mg PO DAILY 01/08/15 08/21/17 Memantine [Namenda] 5 mg PO DAILY 01/08/15 08/21/17 Tiotropium [Spiriva] 18 mcg INH DAILY 01/08/15 08/21/17 Aspirin [Aspirin Chewable] 81 mg PO DAILY 08/21/17 08/21/17 Zolpidem [Ambien] 5 mg PO HS 08/21/17 08/21/17 Review of Systems - Review of Systems Constitutional: Normal. absent: Fatigue, Weight Change, Fevers, Night Sweats Eyes: Normal ENT: Sore Throat. absent: Rhinorrhea, Epistaxis, Sinus Congestion Respiratory: SOB, Cough, Sputum. absent: Wheezing Cardiovascular: Chest Pain. absent: Palpitations, Edema, ABDUL, Orthopnea, Syncope Gastrointestinal: Normal. absent: Abdominal Pain, Nausea, Vomiting Genitourinary Female: Normal. absent: Dysuria, Frequency, Hematuria, Urine Output Changes, Vaginal Bleeding, Vaginal Discharge Musculoskeletal: Normal. absent: Back Pain, Neck Pain, Myalgias Skin: Normal. absent: Rash Neurological: Normal. absent: Headache, Dizziness, Focal Weakness, Gait Changes , Speech Changes, Facial Droop, Disequilibrium, Seizure Endocrine: Normal Hemo/Lymphatic: Normal Psychiatric: Normal Physical Exam Vital Signs Temp Pulse Resp BP Pulse Ox 02/17/18 11:25 97.8 F 74 18 130/75 96 Temperature: Afebrile Blood Pressure: Normal Pulse: Regular Respiratory Rate: Normal Appearance: Positive for: Well-Appearing, Non-Toxic, Comfortable Pain Distress: None Mental Status: Positive for: Alert and Oriented X 3 - Systems Exam Head: Present: Atraumatic, Normocephalic Pupils: Present: PERRL Extroacular Muscles: Present: EOMI Conjunctiva: Present: Normal Mouth: Present: Moist Mucous Membranes Pharnyx: Present: Normal. No: ERYTHEMA, EXUDATE, TONSILS ENLARGED Nose (External): Present: Atraumatic Nose (Internal): Present: Normal Inspection Neck: Present: Normal Range of Motion. No: Meningeal Signs, MIDLINE TENDERNESS , Paraspinal Tenderness Respiratory/Chest: Present: Good Air Exchange, Decreased Breath Sounds. No: Respiratory Distress, Accessory Muscle Use, Wheezes, Rales, Retracting, Rhonchi , Tachypneic Cardiovascular: Present: Regular Rate and Rhythm, Normal S1, S2. No: Murmurs Abdomen: No: Tenderness, Distention, Peritoneal Signs, Rebound, Guarding Back: Present: Normal Inspection Upper Extremity: Present: Normal Inspection, Normal ROM. No: Cyanosis, Edema Lower Extremity: Present: Normal Inspection, NORMAL PULSES, Normal ROM, Neurovascularly Intact. No: Edema, CALF TENDERNESS Neurological: Present: GCS=15, CN II-XII Intact, Speech Normal, Motor Func Grossly Intact, Normal Sensory Function, Normal Cerebellar Funct, Gait Normal, Memory Normal Skin: Present: Warm, Dry, Normal Color. No: Rashes Psychiatric: Present: Alert, Oriented x 3, Normal Insight, Normal Concentration Medical Decision Making ED Course and Treatment: 02/17/18 13:29 Patient feels well. I reviewed with patient Chest X-Ray result and labs. Pending D dimer. 02/17/18 14:57 CT angion is negative for PE. Lungs nodule noted. No changes. Re-evaluation. Patient feels better. Discussed results and plan with patient who expresses understanding. All questions answered and there is agreement with the plan to discharge home with instructions. Patient stable for discharge. Return if symptoms persist or worsen. Re-evaluation Time: 14:58 Reassessment Condition: Re-examined, Improved - Lab Interpretations Lab Results: 02/17/18 12:00 02/17/18 12:00 Lab Results 02/17/18 13:20: D-Dimer, Quantitative 507 H 02/17/18 12:20: Urine Color Yellow, Urine Appearance Clear, Urine pH 6.0, Ur Specific [place] 1.025, Urine Protein Trace H, Urine Glucose (UA) Negative, Urine Ketones Negative, Urine Blood Negative, Urine Nitrate Negative, Urine Bilirubin Negative, Urine Urobilinogen 0.2, Ur Leukocyte Esterase Negative, Urine RBC 0 - 2, Urine WBC 1 - 3, Ur Epithelial Cells 6 - 8, Amorphous Sediment Few, Urine Bacteria Many, Urine Other [place] 02/17/18 12:00: Sodium 140, Potassium 4.3, Chloride 100, Carbon Dioxide 32, Anion Gap 12, BUN 18, Creatinine 0.9, Est GFR ( Amer) > 60, Est GFR (Non- Af Amer) > 60, Random Glucose 91, Calcium 8.9, Magnesium 2.1, Total Bilirubin 0.8, AST 25, ALT 28, Alkaline Phosphatase 97, Lactate Dehydrogenase 536, Total Creatine Kinase 39, Troponin I < 0.01, NT-Pro-B Natriuret Pep 80.1, Total Protein 7.5, Albumin 3.8, Globulin 3.7, Albumin/Globulin Ratio 1.0 L 02/17/18 12:00: WBC 7.1, RBC 4.12, Hgb 12.6, Hct 38.0, MCV 92.2, MCH 30.6, MCHC 33.2, RDW 12.9, Plt Count 211, MPV 9.9, Gran % 71.2 H, Lymph % (Auto) 17.1 L, [place] % (Auto) 9.3 H, Eos % (Auto) 2.1, Baso % (Auto) 0.3, Gran # 5.03, Lymph # ( Auto) 1.2, [place] # (Auto) 0.7 H, Eos # (Auto) 0.2, Baso # (Auto) 0.02 I have reviewed the lab results: Yes Interpretation: No clinic. lab abnormalty - RAD Interpretation Narrative RAD Interpretations (Text): 02/17/18 13:20 Date of service: 02/17/2018 HISTORY: cough COMPARISON: 08/21/2017 TECHNIQUE: Chest PA and lateral FINDINGS: LUNGS: No active pulmonary disease. PLEURA: No significant pleural effusion identified. No pneumothorax apparent. CARDIOVASCULAR: Normal. OSSEOUS STRUCTURES: No significant abnormalities. VISUALIZED UPPER ABDOMEN: Normal. OTHER FINDINGS: None. IMPRESSION: No active disease. 02/17/18 14:56 Patient Name / ID : CHOLO GROSSMAN / [id number] Exam Date : 02/17/2018 14:23:45 ( Approved ) Study Comment : Sex / Age : F / 77Y Creator : Narciso Henson MD Dictator : Narciso Henson MD Cook Larder : Playground Attendant : Narciso Henson MD Approver2 : Report Date : 02/17/2018 14:52:39 My Comment : Date of service: 02/17/2018 PROCEDURE: CT Chest with contrast (Pulmonary Angiogram) FINDINGS: PULMONARY ARTERIES: Unremarkable. No pulmonary embolism. AORTA: No acute findings. No thoracic aortic aneurysm. LUNGS: Multiple pulmonary nodules are again seen in both lung bases right greater than left. These are unchanged. Interstitial infiltrates are also unchanged PLEURAL SPACES: Unremarkable. No effusion or pneumothorax. HEART: Unremarkable. No cardiomegaly. No significant pericardial effusion. LYMPH NODES: No lymphadenopathy. BONES, CHEST WALL: Unremarkable. No fracture or destructive lesion OTHER FINDINGS: Unremarkable. IMPRESSION: No evidence of pulmonary embolus. No change in interstitial infiltrates and bilateral nodules Radiology Orders: 02/17/18 11:45 CHEST TWO VIEWS (PA/LAT) [RAD] Stat 02/17/18 13:44 ANGIO CHEST PE PROTOCOL [CT] Stat - EKG Interpretation Interpreted by ED Physician: Yes (NSR @ [address] changes. Normal interval ) Type: 12 lead EKG Comparison: Similar to previous EKG - Medication Orders Current Medication Orders: Discontinued Medications Acetaminophen (Tylenol 325mg Tab) 650 mg PO STAT STA Stop: 02/17/18 14:58 Albuterol/Ipratropium (Duoneb 3 Mg/0.5 Mg (3 Ml) Ud) 3 ml IH STAT STA Stop: 02/17/18 11:47 Last Admin: 02/17/18 12:21 Dose: 3 ml Disposition/Present on Arrival - Present on Arrival Any Indicators Present on Arrival: No History of DVT/PE: No History of Uncontrolled Diabetes: No Urinary Catheter: No History of Decub. Ulcer: No History Surgical Site Infection Following: None - Disposition Have Diagnosis and Disposition been Completed?: Yes Diagnosis: Pleuritic chest pain, Lung nodule, Cough Disposition: HOME/ ROUTINE Disposition Time: 14:59 Patient Plan: Discharge Patient Problems: Current Active Problems Problem Status Onset Cough Acute Lung nodule Acute Pleuritic chest pain Acute Condition: GOOD Discharge Instructions (ExitCare): Cough, Adult (DC), Pleuritic Chest Pain (DC) Additional Instructions: Call private doctor for follow up visit in 1-2 days. Take medication as instructed. Return to emergency if symptoms worsen. Do not drive or operate machinery if you take cough medication for at least 12 hours. Have your cleaner and preparer reviewed CT scan result, which shows lung nodule. Prescriptions: Promethazine/Codeine [Codeine/Promethazine 10 MG/5 Ml-6.25 MG/5 Ml] 5 ml PO Q6H PRN #60 ml PRN Reason: Cough Sucralfate [Carafate] 1 gm PO DAILY PRN #14 tab PRN Reason: Dyspepsia Referrals: Manasa Bender MD [Primary Care Provider] - Follow up with primary Forms: [employer] (Iranian)
[2018-02-17] MEDS ORDERED: Albuterol-Ipratrop 3 mg / 0.5 (3 ml) UD IH STA (11:46)
[2018-02-17 12:25] LABS: BASO # 0.02 K/mm3 (0.0-2.0); BASO % 0.3 % (0.0-3.0); EOS # 0.2 (0.0-0.7); EOS % 2.1 % (1.5-5.0); GRAN # 5.03 (1.4-6.5); GRAN % 71.2 % (50.0-68.0); HEMOGLOBIN 12.6 g/dL (12.0-16.0); LYMPH # 1.2 (1.2-3.4); LYMPH % 17.1 % (22.0-35.0); MEAN CELL VOLUME 92.2 fl (80.0-105.0); MEAN CORPUSCULAR HEMOGLOBIN 30.6 pg (25.0-35.0); MEAN CORPUSCULAR HGB CONC 33.2 g/dl (31.0-37.0); MEAN PLATELET VOLUME 9.9 fl (7.0-11.0); MONO # 0.7 (0.1-0.6); MONO % 9.3 % (1.0-6.0); RBC 4.12 10^6/uL (3.5-6.1); RED CELL DISTRIBUTION WIDTH 12.9 % (11.5-14.5); WHITE BLOOD COUNT 7.1 10^3/ul (4.5-11.0)
[2018-02-17 12:32] LABS: ALBUMIN 3.8 g/dL (3.0-4.8); ALT/SGPT 28 U/L (7-56); AST/SGOT 25 U/L (14-36); BLOOD UREA NITROGEN 18 mg/dL (7-21); CALCIUM 8.9 mg/dL (8.4-10.5); GFR AFRICAN-AMERICAN > 60; GFR NON-AFRICAN AMERICAN > 60
[2018-02-17 12:33] LABS: URINE BILIRUBIN NEGATIVE (NEGATIVE); URINE BLOOD NEGATIVE (NEGATIVE); URINE GLUCOSE (UA) NEGATIVE (NEGATIVE); URINE LEUKOCYTE ESTERASE NEGATIVE Leu/uL (NEGATIVE); URINE PROTEIN TRACE mg/dL (<30 mg/dL); URINE UROBILINOGEN 0.2 E.U./dL (<1 E.U./dL)
[2018-02-17 12:37] LABS: URINE APPEARANCE CLEAR (CLEAR); URINE COLOR YELLOW (YELLOW)
[2018-02-17 12:44] LABS: B-TYPE NATRIURETIC PEPTIDE 80.1 pg/mL (0-450); TROPONIN I < 0.01 ng/mL
[2018-02-17 12:53] LABS: URINE AMORPHOUS SEDIMENT FEW; URINE BACTERIA MANY (NEG); URINE RBC 0 - 2 /hpf (0-2)
--- NOTE | 2018-02-17 13:17 | RAD ---
Date of service: 02/17/2018 HISTORY: cough COMPARISON: 08/21/2017 TECHNIQUE: Chest PA and lateral FINDINGS: LUNGS: No active pulmonary disease. PLEURA: No significant pleural effusion identified. No pneumothorax apparent. CARDIOVASCULAR: Normal. OSSEOUS STRUCTURES: No significant abnormalities. VISUALIZED UPPER ABDOMEN: Normal. OTHER FINDINGS: None. IMPRESSION: No active disease.
[2018-02-17] MEDS ORDERED: Iohexol 350 MG/100 ML VIAL ONE (13:57)
--- NOTE | 2018-02-17 14:54 | CT ---
Date of service: 02/17/2018 PROCEDURE: CT Chest with contrast (Pulmonary Angiogram) HISTORY: left sided CP , elevated D dimer COMPARISON: None available. TECHNIQUE: Axial computed tomography images were obtained of the chest in the pulmonary arterial phase of enhancement. Coronal and sagittal reformatted images were created and reviewed. Intravenous contrast dose: 100 cc of Omni 350 Radiation dose: Total exam DLP = 191 mGy-cm. This CT exam was performed using one or more of the following dose reduction techniques: Automated exposure control, adjustment of the mA and/or kV according to patient size, and/or use of iterative reconstruction technique. FINDINGS: PULMONARY ARTERIES: Unremarkable. No pulmonary embolism. AORTA: No acute findings. No thoracic aortic aneurysm. LUNGS: Multiple pulmonary nodules are again seen in both lung bases right greater than left. These are unchanged. Interstitial infiltrates are also unchanged PLEURAL SPACES: Unremarkable. No effusion or pneumothorax. HEART: Unremarkable. No cardiomegaly. No significant pericardial effusion. LYMPH NODES: No lymphadenopathy. BONES, CHEST WALL: Unremarkable. No fracture or destructive lesion OTHER FINDINGS: Unremarkable. IMPRESSION: No evidence of pulmonary embolus. No change in interstitial infiltrates and bilateral nodules
[2018-02-17 15:14] VITALS: O2SAT 98
--- NOTE | 2018-02-17 15:35 | CARD ---
APPROVED REPORT Date of service: 02/17/2018 EKG Measurement Heart [id number] <Conclusion> Normal sinus rhythm Septal infarct, age undetermined Abnormal ECG
[2018-02-17 15:50] VITALS: BP 112/70; PULSE 65; TEMP 98.3
== END 2018-02-17 15:20 | disposition home or self-care (01) ==
LOC: ED 11:11
DX: R91.1 Solitary pulmonary nodule (principal); R07.81 Pleurodynia; R05 Cough; I10 Essential (primary) hypertension
CPT/HCPCS: 71046; 71275; 80053; 81001; 82550; 83615; 83735; 83880; 84484; 85025; 85378; 87086; 93005; 99283; Q9967